=== PATIENT | female | born 1975 | race Caucasian/White ===

== ENCOUNTER 2019-10-10 06:39 | Inpatient (IN) | payer SELFPAY ==
[~2019-10-10] VITALS: Ht 165.1 cm; Wt 56.0 kg
[2019-10-10] MEDS ORDERED: SODIUM CHLORIDE 0.9% 1,000 ML IV ONE ×2 (07:18)
[2019-10-10] MEDS ORDERED: CLINDAMYCIN 600MG IV 50 ML IV ONE (07:30)
[2019-10-10] MEDS ORDERED: cefTRIAXone 1GM/50ML D5W 50 ML IV ONE (07:30)
[2019-10-10 07:43] LABS: Basophils # (auto) 0 10 ^3/uL (0-0.2); Basophils % (auto) 0.6 % (0.0-2.0); Eosinophils # (auto) 0 10 ^3/uL (0-0.8); Eosinophils % (auto) 0.5 % (0.0-7.0); Hematocrit 41.8 % (36.0-46.0); Hemoglobin 13.9 g/dL (12.2-16.2); Lymphocytes % (auto) 13.9 % (10.0-50.0); Mean Corpuscular Hemoglobin 29.5 pg (28.0-32.0); Mean Corpuscular Hgb Conc. 33.3 g/dL (32.0-36.0); Mean Corpuscular Volume 88.6 fL (80.0-100.0); Monocytes # (auto) 0.4 10 ^3/uL (0-1.3); Monocytes % (auto) 6.1 % (0.0-12.0); Neutrophils # (auto) 5.7 10 ^3/uL (1.6-8.6); Neutrophils % (auto) 78.9 % (37.0-80.0); Nucleated Red Blood Cells % 0.2 %; Platelet Count (auto) 244 10^3/uL (140-450); Red Blood Cells 4.71 10^6/uL (4.0-5.20); Red Cell Distribution Width 13.5 % (11.8-14.3); White Blood Cell 7.3 10^3/uL (4.4-10.8)
[2019-10-10 07:56] LABS: INR 0.95 (0.9-1.15); Partial Thromboplastin Time 27.5 sec (23.64-32.05)
[2019-10-10 07:57] LABS: Albumin 3.8 g/dL (3.4-5.0); Calcium 8.3 mg/dL (8.5-10.1); Potassium 3.7 mmol/L (3.5-5.1)
[2019-10-10 08:02] LABS: BUN/Creatinine Ratio 18.9; Bilirubin, Total 0.4 mg/dL (0.2-1.0); Total Protein 7.5 g/dL (6.4-8.2)
[2019-10-10] MEDS ORDERED: IOHEXOL 300 MG/ML 100ML BOTTLE IJ ONE (08:25)
[2019-10-10] MEDS ORDERED: ONDANSETRON HCL 4 MG/2 ML VIAL IV PRN (11:00)
[2019-10-10] MEDS ORDERED: MORPHINE SULF INJ 2 MG/ML SYRINGE 1ML IV PRN (11:00)
[2019-10-10] MEDS ORDERED: HYDROcodone-ACET 5/325MG TAB PO PRN (11:00)
[2019-10-10] MEDS: SODIUM CHLORIDE 0.9% 1,000 ML IV SCH ×2 (11:19→19:48)
[2019-10-10] MEDS: CLINDAMYCIN 300MG IV 50 ML IV SCH ×2 (14:09→21:37)
[2019-10-10 14:13] VITALS: BP 101/61
[2019-10-10] MEDS ORDERED: FLUO1TAB3 PO (16:21)
[2019-10-10] MEDS: ACETAMINOPHEN 500 MG TAB PO PRN (19:53)
[2019-10-10 21:13] VITALS: BP 104/63
[2019-10-11 04:47] VITALS: BP 102/66
[2019-10-11] MEDS: CLINDAMYCIN 300MG IV 50 ML IV SCH ×3 (05:12→21:38)
[2019-10-11] MEDS: FAMOTIDINE 20 MG TAB PO SCH (08:45)
[2019-10-11] MEDS: cefTRIAXone 1GM/50ML D5W 50 ML IV SCH (08:46)
[2019-10-11] MEDS: FLUoxetine HCL 10 MG CAP PO SCH (08:46)
[2019-10-11 09:00] VITALS: BP 128/78
[2019-10-11 09:02] LABS: Urine Bacteria NONE SEEN /hpf (None Seen); Urine Blood Negative /uL (Negative); Urine WBC 2 /hpf (0 - 5)
[2019-10-11] MEDS: ACETAMINOPHEN 500 MG TAB PO PRN ×2 (12:43→21:58)
[2019-10-11 14:05] VITALS: BP_SYST 134; BP_SYST 95; BP_DIAS 68; BP_DIAS 90
[2019-10-11 16:27] VITALS: BP 85/60
[2019-10-11 16:49] VITALS: BP 92/59
[2019-10-11 22:01] VITALS: BP 108/68
[2019-10-12 05:06] VITALS: BP 121/66
[2019-10-12] MEDS: CLINDAMYCIN 300MG IV 50 ML IV SCH ×2 (06:09→13:55)
[2019-10-12 06:51] LABS: Basophils # (auto) 0.1 10 ^3/uL (0-0.2); Basophils % (auto) 1.1 % (0.0-2.0); Eosinophils # (auto) 0.1 10 ^3/uL (0-0.8); Eosinophils % (auto) 1.4 % (0.0-7.0); Hematocrit 40.9 % (36.0-46.0); Hemoglobin 13.8 g/dL (12.2-16.2); Lymphocytes # (auto) 1.4 10 ^3/uL (0.4-5.4); Lymphocytes % (auto) 25.6 % (10.0-50.0); Mean Corpuscular Hgb Conc. 33.8 g/dL (32.0-36.0); Mean Corpuscular Volume 88.8 fL (80.0-100.0); Monocytes # (auto) 0.5 10 ^3/uL (0-1.3); Monocytes % (auto) 8.6 % (0.0-12.0); Neutrophils # (auto) 3.5 10 ^3/uL (1.6-8.6); Neutrophils % (auto) 63.3 % (37.0-80.0); Nucleated Red Blood Cells % 0.1 %; Platelet Count (auto) 243 10^3/uL (140-450); Red Blood Cells 4.61 10^6/uL (4.0-5.20); Red Cell Distribution Width 13.4 % (11.8-14.3); White Blood Cell 5.5 10^3/uL (4.4-10.8)
[2019-10-12 08:30] VITALS: BP 121/65
[2019-10-12] MEDS: FLUoxetine HCL 10 MG CAP PO SCH (09:49)
[2019-10-12] MEDS: FAMOTIDINE 20 MG TAB PO SCH (09:49)
[2019-10-12] MEDS: cefTRIAXone 1GM/50ML D5W 50 ML IV SCH (09:56)
[2019-10-12 12:30] VITALS: BP 102/53
== END 2019-10-12 16:40 | disposition home or self-care (01) | DRG 603 ==
LOC: ER 06:39 → TELE 06:40 → TELE-WESTW 12:39
PROVIDERS: ADMIT Nurse Practitioner Acute Care; ATTEND Family Medicine
DX: L03.011 Cellulitis of right finger (principal); F32.9 Major depressive disorder, single episode, unspecified; F41.9 Anxiety disorder, unspecified
CPT/HCPCS: 36415; 71045; 73201; 80053; 81001; 85025; 85610; 85730; G0378; J0696; J3490